=== PATIENT | male | born 1990 | race Caucasian/White ===

== ENCOUNTER 2020-05-17 12:10 | Emergency (ER) | payer MEDICAID ==
[~2020-05-17] VITALS: Ht 170.2 cm; Wt 81.6 kg
[2020-05-17 12:12] VITALS: BP 134/95
--- NOTE | 2020-05-17 12:18 | NUR ---
PATIENT AMBULATED TO BED 4.
[2020-05-17] MEDS ORDERED: ACETAMINOPHEN EXTRA STRENGTH 500 MG TAB PO ONE (12:20)
[2020-05-17] MEDS ORDERED: ALUMINUM HYD/MAG/SIMETHICONE 30 ML UDC PO ONE (12:20)
[2020-05-17 13:16] VITALS: BP 128/88
--- NOTE | 2020-05-17 13:17 | NUR ---
Patient discharged with v/s stable. Written and verbal after care instructions given and explained. Patient alert, oriented and verbalized understanding of instructions. Ambulatory with steady gait. All questions addressed prior to discharge. ID band removed. Patient advised to follow up with PMD. Rx of Maalox 15ml and Reglan 5mg given. Patient educated on indication of medication including possible reaction and side effects. Opportunity to ask questions provided and answered.
== END 2020-05-17 13:17 | disposition home or self-care (01) ==
LOC: MED 12:10
DX: R19.7 Diarrhea, unspecified (principal); T47.4X6A Underdosing of other laxatives, initial encounter; I10 Essential (primary) hypertension; Z91.138 Patient's unintentional underdosing of medication regimen for other reason; Y92.89 Other specified places as the place of occurrence of the external cause
CPT/HCPCS: 99283